=== PATIENT | female | born 1935 | race Caucasian/White ===

== ENCOUNTER 2023-04-14 15:42 | Observation (INO) | payer MEDICARE, OTHER ==
[2023-04-14] VITALS (12 sets, daily range): BP systolic 97–157; BP diastolic 39–68
[~2023-04-14] VITALS: Ht 149.9 cm; Wt 68.8 kg
--- NOTE | 2023-04-14 16:00 | NUR ---
PT STATES SHE CANNOT PEE AND ASKS THIS NURSE TO [facility] CATH HER. THIS NURSE STATES UNDERSTANDING. MD IS NOTIFIED.
--- NOTE | 2023-04-14 16:00 | NUR ---
PT TO ER ROOM 9 WITH STEDAY GAIT. DAUGHTER AT SIDE.
[2023-04-14] MEDS ORDERED: SODIUM CHLORIDE 0.9% 1,000 ML IV ONE (16:40)
[2023-04-14] MEDS ORDERED: ACETAMINOPHEN 500 MG TAB PO ONE (16:40)
[2023-04-14] MEDS ORDERED: cefTRIAXone SODIUM 2 GM in SODIUM CHLORIDE 0.9% 100 ML IV ONE (16:40)
[2023-04-14] MEDS ORDERED: ONDANSETRON HCl 4 MG/2 ML SDV IV ONE (16:45)
[2023-04-14 16:57] LABS: BASO% 0.4 % (0-3); EOS% 0.3 % (0-8); HEMATOCRIT 39.2 % (37.0-47.0); HEMOGLOBIN 12.8 g/dl (12.0-16.0); IMMATURE GRANULOCYTES 0.2 % (0.0-5.0); LYMPH% 6.6 % (15-41); MEAN CORPUSCULAR HGB 30.7 pG CALC (26.0-32.0); MEAN CORPUSCULAR HGB CONC 32.7 g/dL CAL (32.0-36.0); MONO% 10.9 % (2-13); NEUT# 8.84 thou/uL (2.00-7.15); NEUT% 81.6 % (42-76); RED BLOOD COUNT 4.17 mill/uL (4.20-5.60); RED CELL DISTRI WIDTH 13.1 % (11.5-15.5)
[2023-04-14 17:03] LABS: URINE BILIRUBIN - DIPSTICK Negative (NEGATIVE); URINE BLOOD DIPSTICK Moderate (NEGATIVE); URINE GLUCOSE - DIPSTICK Negative (NEGATIVE); URINE KETONE Negative (NEGATIVE); URINE PROTEIN - DIPSTICK >=300 mg/dL (NEG-TRACE); URINE SPECIFIC GRAVITY 1.025; URINE UROBILINOGEN - DIPSTICK 0.2 E.U./dL (0.2)
[2023-04-14 17:04] LABS: URINE COLOR Yellow; URINE LEUK ESTERASE Small (NEGATIVE); URINE NITRITE - DIPSTICK Positive (Negative)
[2023-04-14 17:09] LABS: URINE BACTERIA MANY hpf; URINE WBC 50-100 WBC/hpf (0-5)
[2023-04-14 17:10] LABS: URINE MUCUS FEW hpf (NONE-FEW)
[2023-04-14 17:18] LABS: ALBUMIN 3.5 g/dL (3.2-5.0); ALKALINE PHOSPHATASE 152 u/l (38-126); BUN 22 mg/dL (8-23); BUN/CREATININE RATIO 21 (12-20 (CALC)); CARBON DIOXIDE 27 mmol/l (22-30); CHLORIDE 103 mmol/l (95-108); GFR FOR AFR.AMER. > 60 ML/MIN (>=60 (CALC)); GFR OTHER RACES 52 ML/MIN (>=60 (CALC)); POTASSIUM 4.4 mmol/l (3.5-5.1); SGOT/AST 23 u/l (9-36); TOTAL PROTEIN 6.8 g/dL (6.3-8.2)
--- NOTE | 2023-04-14 17:22 | NUR ---
PT RESTING IN BED. DAUGHTER AT BEDSIDE. PT DENIES ANY NEEDS AT THIS TIME.
[2023-04-14 17:46] LABS: ANION GAP 9 (6-22 (CALC)); BILIRUBIN, TOTAL 0.6 mg/dL (0.02-1.3); SODIUM 135 mmol/l (137-146)
--- NOTE | 2023-04-14 18:08 | NUR ---
PTS DAUGHTER LEFT BEDSIDE. PT RESTING IN BE, EYES CLOSED. NO ACUTE DISTRESS NOTED.
[2023-04-14] MEDS ORDERED: ZPAK PO (18:54)
--- NOTE | 2023-04-14 19:18 | NUR ---
PT RESTING IN BED. DAUGHTER RETURN TO BEDSIDE. PT STATES " I WANT SOME BUTTERED TOAST" THIS NURSE STATES NPO UNTIL WE GET TEST RESULTS BACK.
--- NOTE | 2023-04-14 20:06 | NUR ---
PT RESTING IN BED. VSS. PT IS EDUCATED ON CONTINUED WIAT TIME. PT STATES UNDERSTANDING AND DENIES ANY NEEDS AT THIS TIME.
[2023-04-14] MEDS ORDERED: ACETAMINOPHEN 325 MG/TAB PO PRN (20:20)
[2023-04-14] MEDS ORDERED: MAGNESIUM HYDROXIDE 30 ML UDC PO PRN (20:20)
[2023-04-14] MEDS ORDERED: SODIUM CHLORIDE 0.9% 1,000 ML IV PRN (20:20)
--- NOTE | 2023-04-14 20:40 | NUR ---
PATIENT/FAMILY UPDATED ON CONTINUOUS PLAN OF CARE AT THIS TIME, FAMILY VOICES "I WANT TO SEE THE DOCTOR BECAUSE NO ONE TOLD US ABOUT ADMISSION NOW." PATIENT/FAMILY REDIRECTED, MD NOTIFIED AT THIS TIME, AWAITING MD FOR DISCUSSION OF ADMISSION AND ALL RESULTS.
[2023-04-14] MEDS ORDERED: ATORVASTATIN CA40 MG PO (20:47)
[2023-04-14] MEDS ORDERED: AMLODIPINE BESYL5 MG PO (20:47)
[2023-04-14] MEDS ORDERED: LOPRESSOR25 M1 PO (20:48)
[2023-04-14] MEDS ORDERED: MIRALAX17 GM (20:48)
[2023-04-14] MEDS ORDERED: MULTI VIT PO (20:48)
--- NOTE | 2023-04-14 20:49 | NUR ---
AT BEDSIDE TO DISCUSS PT BEING ADMITTED.
[2023-04-14] MEDS ORDERED: ATORVASTATIN CALCIUM 40 MG/TAB PO SCH (21:00)
[2023-04-14] MEDS ORDERED: ENOXAPARIN SODIUM 40 MG/0.4 ML SYR SC SCH (21:00)
--- NOTE | 2023-04-14 21:32 | NUR ---
FOOD TRAY PROVIDED TO PT. PT DENIES ANY NEEDS AT THIS TIME.
[2023-04-14] MEDS ORDERED: IBUPROFEN 600 MG/TAB PO ONE (22:00)
--- NOTE | 2023-04-14 22:05 | NUR ---
PATIENT ADMITTED TO ROOM 271 VIA STRETCHER. TRANSFERRED TO STANDING SCALE THEN ROOM BED WITH ASSIST X1. ASSESSMENT COMPLETE. PATIENT ALERT AND ABLE TO MAKE NEEDS KNOWN. 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 NO DISTRESS NOTED. NO COMPLAINTS OF PAIN AT THIS TIME. SKIN INTACT BUT DOES HAVE A SMALL ABRASION TO LEFT FOREHEAD AREA AND RIGHT KNEE. ORIENTED PATIENT TO ROOM, CALL TORIBIO AND SURROUNDINGS. FRESH WATER AT BEDSIDE. BED IN LOW POSITION. CALL OTRIBIO IN REACH.
--- NOTE | 2023-04-14 22:12 | NUR ---
PT TAKEN TO HI VIA BED.
[2023-04-15] VITALS (7 sets, daily range): BP systolic 106–152; BP diastolic 46–57
--- NOTE | 2023-04-15 00:13 | NUR ---
CALLED MATERIALS MANAGER PROVIDER ABOUT PATIENTS LOW BP. PATIENT ASYMPTOMATIC. NEW ORDER TO INCREASE IVF TO 125ML/HR.
[2023-04-15] MEDS ORDERED: SODIUM CHLORIDE 0.9% 1,000 ML IV PRN (00:25)
--- NOTE | 2023-04-15 03:55 | NUR ---
PATIENT REMAINS RESTING IN BED. DENIES NEEDING ANYTHING AT THIS TIME. NO COMPLAINS VOICED. BED REMAINS IN LOW POSITION. CALL TORIBIO IN REACH.
[2023-04-15 07:24] LABS: ALKALINE PHOSPHATASE 130 u/l (38-126); ANION GAP 8 (6-22 (CALC)); BUN 21 mg/dL (8-23); BUN/CREATININE RATIO 20 (12-20 (CALC)); CARBON DIOXIDE 26 mmol/l (22-30); CHLORIDE 109 mmol/l (95-108); GFR FOR AFR.AMER. > 60 ML/MIN (>=60 (CALC)); GFR OTHER RACES 52 ML/MIN (>=60 (CALC)); POTASSIUM 4.4 mmol/l (3.5-5.1); SGOT/AST 22 u/l (9-36); SODIUM 138 mmol/l (137-146)
[2023-04-15 07:26] LABS: ALBUMIN 2.5 g/dL (3.2-5.0); BASO% 0.4 % (0-3); BILIRUBIN, TOTAL 0.3 mg/dL (0.02-1.3); EOS% 1.2 % (0-8); HEMATOCRIT 34.4 % (37.0-47.0); HEMOGLOBIN 11.1 g/dl (12.0-16.0); IMMATURE GRANULOCYTES 0.2 % (0.0-5.0); LYMPH% 6.9 % (15-41); MEAN CELL VOLUME 97.2 fL CALC (80.0-100.0); MEAN CORPUSCULAR HGB 31.4 pG CALC (26.0-32.0); MEAN CORPUSCULAR HGB CONC 32.3 g/dL CAL (32.0-36.0); MONO% 9.2 % (2-13); NEUT# 6.7 thou/uL (2.00-7.15); NEUT% 82.1 % (42-76); RED BLOOD COUNT 3.54 mill/uL (4.20-5.60); RED CELL DISTRI WIDTH 13.5 % (11.5-15.5)
--- NOTE | 2023-04-15 08:00 | NUR ---
PT IN BED WITH HOB UP, PT IS ALERT AND OREINTED X 3, WITH CONFUSION AT TIMES. PT IV SITE TO RAC CLEAN AND INTACT WITH NS @ 125 ML/HR INFUSING. PT LUNGS CLEAR THROUGHOUT AND BREATHING IS NON LABORED. PT ABD IS SOFT WITH ACTIVE BS. TELE ON WITH ALL LEADS ATTACHED. PT AMBULATES WITH ONE ASSIST TO BATHROOM FOR TOILETING NEEDS. PT HAS CALL LIGHT WITHIN REACH AND SAFETY MEASURES IN PLACE AT THIS TIME.
[2023-04-15] MEDS ORDERED: ONDANSETRON HCl 4 MG/2 ML SDV IV PRN (09:30)
[2023-04-15] MEDS ORDERED: METOPROLOL TARTRATE 25 MG/TAB PO SCH (10:32)
[2023-04-15] MEDS ORDERED: TOPROL XL25 MG PO (10:33)
[2023-04-15] MEDS ORDERED: METOPROLOL SUCCINATE 25 MG/TAB-TOPROL XL PO SCH (11:00)
[2023-04-15] MEDS ORDERED: amLODIPine BESYLATE 5 MG/TAB PO SCH (11:00)
--- NOTE | 2023-04-15 12:00 | NUR ---
PT UP IN CHAIR AT BEDSIDE, FAMILY IN RM TO VISIT. PT HAS NO C/O PAIN AT THIS TIME. PT HAS NO CHANGE IN STATUS AT THIS TIME. PT HAS CALL LIGHT WITHIN REACH AND SAFETY MEASURES IN PLACE AT THIS TIME.
--- NOTE | 2023-04-15 16:00 | NUR ---
PT IN BED WITH HOB UP, NO C/O PAIN AT THIS TIME. PT HAS CALL LIGHT WITHIN REACH AND SAFETY MEASURES IN PLACE.
[2023-04-16] VITALS (7 sets, daily range): BP systolic 113–163; BP diastolic 48–72
[2023-04-16 05:04] LABS: BASO% 0.5 % (0-3); EOS% 1.9 % (0-8); HEMATOCRIT 31.3 % (37.0-47.0); IMMATURE GRANULOCYTES 0.2 % (0.0-5.0); LYMPH% 10.9 % (15-41); MEAN CELL VOLUME 96.6 fL CALC (80.0-100.0); MEAN CORPUSCULAR HGB 30.9 pG CALC (26.0-32.0); MEAN CORPUSCULAR HGB CONC 31.9 g/dL CAL (32.0-36.0); MONO% 14.3 % (2-13); NEUT# 4.23 thou/uL (2.00-7.15); NEUT% 72.2 % (42-76); RED BLOOD COUNT 3.24 mill/uL (4.20-5.60); RED CELL DISTRI WIDTH 13.4 % (11.5-15.5)
[2023-04-16 05:39] LABS: ALBUMIN 2.2 g/dL (3.2-5.0); ALKALINE PHOSPHATASE 121 u/l (38-126); ANION GAP 5 (6-22 (CALC)); BUN 18 mg/dL (8-23); BUN/CREATININE RATIO 21 (12-20 (CALC)); CARBON DIOXIDE 23 mmol/l (22-30); CHLORIDE 112 mmol/l (95-108); CREATININE 0.9 mg/dL (0.5-1.0); GFR FOR AFR.AMER. > 60 ML/MIN (>=60 (CALC)); GFR OTHER RACES 59 ML/MIN (>=60 (CALC)); POTASSIUM 4.1 mmol/l (3.5-5.1); SGOT/AST 24 u/l (9-36); SODIUM 136 mmol/l (137-146); TOTAL PROTEIN 4.5 g/dL (6.3-8.2)
[2023-04-16 05:42] LABS: BILIRUBIN, TOTAL 0.1 mg/dL (0.02-1.3)
--- NOTE | 2023-04-16 08:00 | NUR ---
BEDSIDE REPORT RECEIVED FROM OFF GOING NURSE. PATIENT AWAKE SITTING UP IN RECLINER IN ROOM. DENIES PAIN OR DISCOMFORT AT THIS TIME. RESPIRATIONS EVEN AND UNLABORED ON ROOM AIR. IV FLUIDS CONTINUE. PATIENT AMBULATES TO BATHROOM WITH SBA. PATIENT SHOWS NO SIGNS OF DISTRESS. SAFETY MEASURES IN PLACE. CALL LIGHT WITHIN REACH.
[2023-04-16] MEDS ORDERED: cefTRIAXone SODIUM 2 GM in SODIUM CHLORIDE 0.9% 100 ML IV SCH (11:00)
--- NOTE | 2023-04-16 11:59 | NUR ---
Preliminary blood culture shows gram negatve rods in 1/4 vials. Patient also with E.coli sensitive to ceftriaxone in urine. Results reported to Dr Vigil. Rocephin increased to 2gm IV q24h.
--- NOTE | 2023-04-16 12:46 | NUR ---
PATIENT SITTING UP IN RECLINER IN ROOM. MEDICATED FOR PAIN AND IT WAS EFFECTIVE. RESPIRATIONS EVEN AND UNLABORED ON ROOM AIR. FAMILY IN TO VISIT AND THEY MET WITH DR. JIMENEZ UPON ROUNDS. FAMILY JUST LEFT AND NO FURTHER CONCERNS VOICED. SAFETY MEASURES IN PLACE. CALL LIGHT WITHIN REACH.
[2023-04-16] MEDS ORDERED: Polyethylene Glycol 3350 17 GM/PKT PO SCH (13:30)
--- NOTE | 2023-04-16 16:29 | NUR ---
PATIENT AWAKE SITTING IN RECLINER. DENIES PAIN OR DISCOMFORT. RESPIRATIONS EVEN AND UNLABORED ON ROOM AIR. IV FLUIDS CONTINUE. CALL LIGHT WITHIN REACH.
--- NOTE | 2023-04-16 20:30 | NUR ---
PT ASSISTED BACK TO BED FROM BATHROOM, PT AMBULATES WITH CANE, A&O X3, DISCUSSED POC, NOTED ABRASION TO L FOREHEAD, ABRASIONS TO KNEES BILAT, BRUISE TO R FOOT AND EDEMA. PT STATES SHE FELL AT HOME ON TUESDAY, NO LOSS OF CONSIOUSNESS. OBEYS COMMANDS. DISCUSSED FALL PRECAUTIONS WITH PT AND FALL RISK BRACELET APPLIED, YELLOW SOCKS FOR SAFETY. ENCOURAGED BSC USE, PT AGREES, ASSESSMENT REVIEW COMPLETED, PT C/O "GAS" REQUESTING TUMS, CALL MADE TO PROVIDER AND ORDER OBTAINED. CALL LIGHT IN REACH, SIDERAILS X2, CONTINUE TO MONITOR.
[2023-04-16] MEDS ORDERED: Pantoprazole Sodium 40 MG VIAL (Protonix) IV SCH (20:35)
[2023-04-16] MEDS ORDERED: CALCIUM CARBONATE 750 MG/TAB PO PRN (20:45)
--- NOTE | 2023-04-17 00:37 | NUR ---
PT RESTING IN BED SPO2 91% PLACED PT ON 2L NC AND INCREASED TO 94%. PT DENIES USE OF O2 OR CPAP AT NIGHT. DENIES ANY NEEDS OR COMPLAINTS AT THIS TIME. CALL LIGHT IN REACH,CONTINUE TO MONITOR.
[2023-04-17 04:17] VITALS: BP 157/74
--- NOTE | 2023-04-17 04:17 | NUR ---
PT RESTING IN BED NO SIGNS OF DISTRESS NOTED, VITALS OBTAINED, PT ASKING IF SHE CAN REMOVE O2, SPO2 96% ON RA. PT STATES SHE WILL "KEEP IT ON FOR A LITTLE WHILE LONGER" VITALS OBTAINED. CALL LIGHT IN REACH, VOICES NO NEEDS OR COMPLAINTS AT THIS TIME. POC ONGOING.
[2023-04-17 07:05] VITALS: BP 162/62
[2023-04-17 07:24] LABS: BASO% 0.8 % (0-3); EOS% 2.4 % (0-8); HEMATOCRIT 34.6 % (37.0-47.0); HEMOGLOBIN 10.9 g/dl (12.0-16.0); IMMATURE GRANULOCYTES 0.2 % (0.0-5.0); LYMPH% 10.1 % (15-41); MEAN CELL VOLUME 95.3 fL CALC (80.0-100.0); MEAN CORPUSCULAR HGB CONC 31.5 g/dL CAL (32.0-36.0); NEUT# 4.64 thou/uL (2.00-7.15); NEUT% 74.5 % (42-76); RED BLOOD COUNT 3.63 mill/uL (4.20-5.60); RED CELL DISTRI WIDTH 13.3 % (11.5-15.5)
[2023-04-17 07:43] LABS: ANION GAP 7 (6-22 (CALC)); BUN 13 mg/dL (8-23); BUN/CREATININE RATIO 17 (12-20 (CALC)); CARBON DIOXIDE 24 mmol/l (22-30); CHLORIDE 111 mmol/l (95-108); CREATININE 0.8 mg/dL (0.5-1.0); GFR FOR AFR.AMER. > 60 ML/MIN (>=60 (CALC)); GFR OTHER RACES > 60 ML/MIN (>=60 (CALC)); SODIUM 138 mmol/l (137-146)
--- NOTE | 2023-04-17 08:00 | NUR ---
RECEIVED REPORT FROM NIGHTSHIFT NURSE. PT NOTED SITTING UP ON BSC, RM AIR, NO S/S OF DISTRESS. PT DENIES ANY PAIN AT THIS TIME. A/OX3. PT STATES "IM GOING HOME TODAY" EDUCATED PT ON PLAN OF CARE, MED SCHEDULE, AND DC. CALL LIGHT WITHIN REACH AND SAFETY PRECAUTIONS IN PLACE.
[2023-04-17 08:14] VITALS: BP 162/62
[2023-04-17] MEDS ORDERED: OMNICEF300 MG PO (09:02)
--- NOTE | 2023-04-17 11:08 | NUR ---
IV site discontinued, cath intact. No edema , no redness, voices no discomfort. Discharge instructions given. Patient verbalizes understanding of same. Discharged in stable condition via Wheelchair to Home with staff. All belongings sent with pt.
--- NOTE | 2023-04-18 11:05 | NUR ---
Discharge follow up call completed 04/18/23. Pt states she is doing vry well and had an excellent night. Pt has prescribed medication and will begin taking it today. Pt will contact PCP and schedule a follow up appointment. No needs or questions verbalized by patient at this time. She is grateful for follow up call.[email or web address]
== END 2023-04-17 11:27 | disposition home or self-care (01) ==
LOC: ED 15:42 → MS2 20:20
PROVIDERS: Family Medicine; Nurse Practitioner Family; Student in an Organized Health Care Education/Training Program; ADMIT Internal Medicine; ATTEND Internal Medicine
DX: A41.50 Gram-negative sepsis, unspecified (principal); N30.00 Acute cystitis without hematuria; I10 Essential (primary) hypertension; Z85.3 Personal history of malignant neoplasm of breast; Z85.42 Personal history of malignant neoplasm of other parts of uterus; Z20.822 Contact with and (suspected) exposure to COVID-19
CPT/HCPCS: J1650; Q9967; S0164